=== PATIENT | male | born 1980 | race African-American/Black ===

== ENCOUNTER 2022-11-05 18:18 | Emergency (ER) | payer MEDICAID ==
[~2022-11-05] VITALS: Ht 177.8 cm; Wt 92.0 kg
[2022-11-06] MEDS ORDERED: IPRATROPIUM BROMIDE (0.02%) 0.5MG/2.5ML NEB HHN STA (00:21)
[2022-11-06] MEDS ORDERED: ALBUTEROL (0.083%) 2.5MG/3ML NEB HHN STA (00:21)
[2022-11-06 00:54] LABS: BASOPHILS % 0.1 % (0.0-2.0); EOSINOPHILS % 1.3 % (0.0-5.0); HEMATOCRIT. 43.7 % (42.0-52.0); HEMOGLOBIN. 15.1 g/dL (14.0-18.0); LYMPHOCYTES % 18.1 % (20.0-50.0); MEAN PLATELET VOLUME 8.2 fl (7.4-10.4); MONOCYTES % 12.3 % (2.0-8.0); NEUTROPHILS % 68.2 % (40.0-76.0); PLATELET 314 x1000/uL (130-400); RED BLOOD CELL COUNT 5.03 mill/uL (4.7-6.1); RED CELL DISTRIBUTION WIDTH 12.9 % (11.6-14.6)
[2022-11-06 01:01] LABS: CHLORIDE 94 mEq/L (98-107)
[2022-11-06] MEDS ORDERED: INSU100I28 SQ (05:25)
[2022-11-06] MEDS ORDERED: SITA1TAB6 MT (05:25)
[2022-11-06] MEDS ORDERED: CARV3.1242 MT (05:25)
[2022-11-06] MEDS ORDERED: PIOG15TA6 MT (05:25)
[2022-11-06 05:34] VITALS: BP 133/84
== END 2022-11-06 05:37 | disposition home or self-care (01) ==
LOC: ER 18:18
DX: J45.909 Unspecified asthma, uncomplicated (principal); E11.65 Type 2 diabetes mellitus with hyperglycemia; I25.2 Old myocardial infarction; Z98.890 Other specified postprocedural states
CPT/HCPCS: 36415; 71045; 80053; 82962; 83880; 84484; 85025; 85379; 93005; 94640; 99285; Z7610

== ENCOUNTER 2023-04-12 21:57 | Emergency (ER) | payer SELFPAY ==
[~2023-04-12] VITALS: Ht 182.9 cm; Wt 91.0 kg
[~2023-04-12 21:57] MED LIST: CARV3.1242 MT; INSU100I28 SQ; PIOG15TA6 MT; SITA1TAB6 MT
[2023-04-12 22:23] VITALS: O2SAT 98
[2023-04-13] MEDS ORDERED: IBUPROFEN 600MG TABLET PO STA (00:35)
[2023-04-13] MEDS ORDERED: BACITRACIN ZINC OINT UDPKT TOP ONE (00:45)
[2023-04-13] MEDS ORDERED: NAPR-681 MT (04:48)
[2023-04-13 05:54] VITALS: BP 127/82; PULSE 80; RESP 18; TEMP 98.1
== END 2023-04-13 06:00 | disposition home or self-care (01) ==
LOC: ER 04-13 01:01
DX: S16.1XXA Strain of muscle, fascia and tendon at neck level, initial encounter (principal); M54.2 Cervicalgia; J45.909 Unspecified asthma, uncomplicated; E11.9 Type 2 diabetes mellitus without complications; I25.2 Old myocardial infarction; R07.89 Other chest pain; V49.49XA Driver injured in collision with other motor vehicles in traffic accident, initial encounter; Y93.89 Activity, other specified; Y92.89 Other specified places as the place of occurrence of the external cause; Y99.8 Other external cause status
CPT/HCPCS: 71045; 99284